=== PATIENT | female | born 1995 | race Caucasian/White ===

== ENCOUNTER 2021-12-14 01:24 | Inpatient (IN) | payer OTHER ==
[2021-12-14] MEDS ORDERED: Lidocaine 1% 50 ML MDV INJECT ONE (07:42)
[2021-12-14] MEDS ORDERED: Ondansetron 4 MG/2 ML SDV IVPUSH PRN (07:42)
[2021-12-14] MEDS ORDERED: Acetaminophen 325 MG Tab PO PRN (07:42)
[2021-12-14] MEDS ORDERED: Sodium Chloride 0.9% 10 ML Syringe FLUSH PRN (07:42)
[2021-12-14] MEDS ORDERED: Nalbuphine HCl 10 MG/ 1ML Amp IVPUSH PRN (07:42)
[2021-12-14] MEDS ORDERED: Calcium Carbonate 500 MG Tab.Chew PO PRN (07:42)
[2021-12-14] MEDS ORDERED: Oxytocin/Lactated Ringers 10 UNIT/1,000 ML BAG IV SCH ×2 (07:45)
[2021-12-14] MEDS: Misoprostol 25 MCG (1/4 of 100 MCG) Tab VAG SCH (08:10)
[2021-12-14] MEDS ORDERED: diphenhydrAMINE 50 MG/ML SDV IVPUSH PRN (11:47)
[2021-12-14] MEDS ORDERED: Bupivacaine/fentaNYL/NS 100 ML Bag EPIDUR PRN (11:47)
[2021-12-14] MEDS ORDERED: ePHEDrine 50 MG/ML SDV IVPUSH PRN (11:47)
[2021-12-14] MEDS ORDERED: fentaNYL 100 MCG/2 ML SDV EPIDUR PRN (11:47)
[2021-12-14] MEDS: Lactated Ringers 1,000 ML IV SCH ×3 (16:09→21:08)
[2021-12-15] MEDS ORDERED: Bupivacaine 0.25% 10 ML SDV ONE
[2021-12-15] MEDS ORDERED: Docusate Sodium 100 MG Cap PO PRN (02:07)
[2021-12-15] MEDS ORDERED: Benzocaine/Menthol 20%-0.5% Spray 78 GM Cannister TOP PRN (02:07)
[2021-12-15] MEDS ORDERED: Witch Hazel Medicated Pads 40/Jar TOP PRN (02:07)
[2021-12-15] MEDS: Ibuprofen 600 MG Tab PO PRN ×2 (03:51→16:00)
[2021-12-15] MEDS: Sodium Chloride 0.9% 10 ML Syringe FLUSH SCH ×2 (08:12→08:13)
[2021-12-15] MEDS: Misoprostol 25 MCG (1/4 of 100 MCG) Tab VAG SCH (08:13)
[2021-12-15] MEDS: Acetaminophen 325 MG Tab PO PRN ×2 (09:25→22:00)
== END 2021-12-16 16:20 | disposition home or self-care (01) | DRG 807 ==
LOC: JD.OB 01:24 → OBSVTOIN 12-15 01:24 → JD.OB 12-15 01:25
PROVIDERS: ADMIT Obstetrics & Gynecology; ATTEND Obstetrics & Gynecology
PROC: 10E0XZZ Delivery of Products of Conception, External Approach (ICD-10-PCS; principal; 2021-12-15)
PROC: 0KQM0ZZ Repair Perineum Muscle, Open Approach (ICD-10-PCS; 2021-12-15)
PROC: 10907ZC Drainage of Amniotic Fluid, Therapeutic from Products of Conception, Via Natural or Artificial Opening (ICD-10-PCS; 2021-12-15)
PROC: 3E0P7VZ Introduction of Hormone into Female Reproductive, Via Natural or Artificial Opening (ICD-10-PCS; 2021-12-15)
PROC: 3E033VJ Introduction of Other Hormone into Peripheral Vein, Percutaneous Approach (ICD-10-PCS; 2021-12-15)
PROC: 0U7C7ZZ Dilation of Cervix, Via Natural or Artificial Opening (ICD-10-PCS; 2021-12-15)
PROC: 3E0R3BZ Introduction of Anesthetic Agent into Spinal Canal, Percutaneous Approach (ICD-10-PCS; 2021-12-15)
DX: O48.0 Post-term pregnancy (principal); Z37.0 Single live birth; Z3A.40 40 weeks gestation of pregnancy; O70.1 Second degree perineal laceration during delivery
CPT/HCPCS: 36415; 51702; 59025; 59409; 85025; 86592; 86850; 86900; 86901; A9270-GY; C1726; J2300; J2590; J3010; J3490; J7120

== ENCOUNTER 2023-09-27 14:08 | Emergency (ER) | payer OTHER ==
[2023-09-27] MEDS: Sodium Chloride 0.9% 1,000 ML IV SCH (14:39)
[2023-09-27 14:49] LABS: BASOPHILS PERCENT AUTO 0.3 % (0.0-1.0); EOSINOPHILS ABSOLUTE AUTO 0.1 K/mm3 (0.0-0.4); EOSINOPHILS PERCENT AUTO 0.8 % (0.0-6.0); HEMATOCRIT 38.3 % (37.0-47.0); HEMOGLOBIN 13.6 gm/dl (12.0-16.0); IMMATURE GRAN ABSOLUTE AUTO 0.01 K/mm3 (0.00-0.05); IMMATURE GRAN PERCENT AUTO 0.2 % (0.0-0.4); LYMPHOCYTES ABSOLUTE AUTO 2.2 K/mm3 (1.0-4.8); LYMPHOCYTES PERCENT AUTO 34.7 % (24.0-44.0); MEAN CORPUSCULAR HEMOGLOBIN 29.4 pg (28.0-32.0); MEAN CORPUSCULAR HGB CONC 35.5 g/dl (32.0-36.0); MEAN CORPUSCULAR VOLUME 82.9 fl (83.0-99.0); MEAN PLATELET VOLUME 8.8 fl (9.4-12.3); MONOCYTES ABSOLUTE AUTO 0.4 K/mm3 (0.0-0.8); NEUTROPHILS ABSOLUTE AUTO 3.7 K/mm3 (1.8-7.7); PLATELET COUNT,PLT 338 K/mm3 (150-400); RED BLOOD CELL COUNT 4.62 M/mm3 (4.10-5.30); WHITE BLOOD CELL COUNT,WBC 6.34 K/mm3 (3.9-11.3)
[2023-09-27 15:25] LABS: A/G RATIO 1.1 (1-2); ANION GAP 15.2 (5-15); BILIRUBIN TOTAL 1.2 mg/dL (0.2-1.0); BUN/CREATININE RATIO 11.3 (14-18); CALCIUM 9.1 mg/dL (8.5-10.1); CREATININE 0.8 mg/dL (0.55-1.02); EST CRCL DRUG DOSING (CG) 81.33 mL/min; POTASSIUM,K 3.2 mEq/L (3.5-5.1); PROTEIN TOTAL,TP 7.8 g/dl (6.4-8.2); TSH 3.227 uIU/mL (0.358-3.74)
[2023-09-27] MEDS: Potassium Chloride 20 MEQ Tab.ER PO ONE (16:32)
== END 2023-09-27 16:38 | disposition home or self-care (01) ==
LOC: JD.ED 14:08
DX: I49.3 Ventricular premature depolarization (principal); E87.6 Hypokalemia; Z91.048 Other nonmedicinal substance allergy status; Z79.899 Other long term (current) drug therapy
CPT/HCPCS: 36415; 71046; 80053; 84443; 84703; 85025; 93005; 99285; A9270; J7030; 93010; 99284

== ENCOUNTER 2025-05-07 18:59 | Inpatient (IN) | payer OTHER ==
[2025-05-07] MEDS ORDERED: Nalbuphine 10 MG/1 ML Vial IVPUSH PRN (19:09)
[2025-05-07] MEDS ORDERED: Sodium Chloride 0.9% 10 ML Syringe FLUSH PRN (19:09)
[2025-05-07] MEDS ORDERED: Oxytocin/0.9 % Sodium Chloride 30 UNIT/500 ML BAG IV SCH (19:15)
[2025-05-07 19:33] LABS: BASOPHILS ABSOLUTE AUTO 0.0 K/mm3 (0.0-0.2); BASOPHILS PERCENT AUTO 0.3 % (0.0-1.0); EOSINOPHILS ABSOLUTE AUTO 0.0 K/mm3 (0.0-0.4); EOSINOPHILS PERCENT AUTO 0.4 % (0.0-6.0); IMMATURE GRAN ABSOLUTE AUTO 0.05 K/mm3 (0.00-0.05); IMMATURE GRAN PERCENT AUTO 0.5 % (0.0-0.4); LYMPHOCYTES ABSOLUTE AUTO 2.0 K/mm3 (1.0-4.8); LYMPHOCYTES PERCENT AUTO 21.1 % (24.0-44.0); MEAN PLATELET VOLUME 11.2 fl (9.4-12.3); MONOCYTES ABSOLUTE AUTO 0.4 K/mm3 (0.0-0.8); MONOCYTES PERCENT AUTO 4.7 % (0.0-8.0); NEUTROPHILS ABSOLUTE AUTO 6.8 K/mm3 (1.8-7.7); NEUTROPHILS PERCENT AUTO 73.0 % (41.0-71.0); NRBC ABSOLUTE 0.00 (0.00-0.02); NRBC PERCENT 0.0 % (0.0-0.2); PLATELET COUNT,PLT 264 K/mm3 (150-400); RED BLOOD CELL COUNT 4.26 M/mm3 (4.10-5.30); WHITE BLOOD CELL COUNT,WBC 9.33 K/mm3 (3.9-11.3)
[2025-05-07] MEDS: Oxytocin/0.9 % Sodium Chloride 30 UNIT/500 ML BAG IV SCH (20:13)
[2025-05-07] MEDS: Lactated Ringers 1,000 ML IV SCH (20:13)
[2025-05-08] MEDS ORDERED: diphenhydrAMINE 50 MG/ML SDV IVPUSH PRN (02:39)
[2025-05-08] MEDS ORDERED: ePHEDrine 50 MG/ML SDV IVPUSH PRN (02:39)
[2025-05-08] MEDS: Bupivacaine/fentaNYL/NS 100 ML Bag EPIDUR PRN (02:46)
[2025-05-08] MEDS: Ondansetron 4 MG/2 ML SDV IVPUSH PRN (03:25)
[2025-05-08] MEDS: Witch Hazel Medicated Pads 40/Jar TOP PRN (07:39)
[2025-05-08] MEDS: Benzocaine/Menthol 20%-0.5% Spray 78 GM Cannister TOP PRN (07:39)
[2025-05-08] MEDS: Sodium Chloride 0.9% 10 ML Syringe FLUSH SCH (09:46)
== END 2025-05-10 11:45 | disposition home or self-care (01) | DRG 807 ==
LOC: JD.OBCHECK 18:59 → JD.OB 19:03 → JD.OBCHECK 19:09 → JD.OB 19:10 → OBSVTOIN 05-08 05:13 → JD.OB 05-08 12:11
PROVIDERS: ADMIT Obstetrics & Gynecology; ATTEND Obstetrics & Gynecology
PROC: 10E0XZZ Delivery of Products of Conception, External Approach (ICD-10-PCS; principal; 2025-05-08)
PROC: 0KQM0ZZ Repair Perineum Muscle, Open Approach (ICD-10-PCS; 2025-05-08)
PROC: 10907ZC Drainage of Amniotic Fluid, Therapeutic from Products of Conception, Via Natural or Artificial Opening (ICD-10-PCS; 2025-05-08)
PROC: 3E033VJ Introduction of Other Hormone into Peripheral Vein, Percutaneous Approach (ICD-10-PCS; 2025-05-08)
PROC: 3E0P7VZ Introduction of Hormone into Female Reproductive, Via Natural or Artificial Opening (ICD-10-PCS; 2025-05-08)
PROC: 3E0S3BZ Introduction of Anesthetic Agent into Epidural Space, Percutaneous Approach (ICD-10-PCS; 2025-05-08)
DX: O99.344 Other mental disorders complicating childbirth (principal); Z37.0 Single live birth; Z3A.39 39 weeks gestation of pregnancy; O70.1 Second degree perineal laceration during delivery; F32.A Depression, unspecified; F41.9 Anxiety disorder, unspecified
CPT/HCPCS: 01967; 36415; 51701; 59025; 59409; 85025; 86592; 86850; 86900; 86901; A9270-GY; J2405; J3490; J7120; J7999